=== PATIENT | male | born 2000 | race African-American/Black ===

== ENCOUNTER 2023-05-07 15:41 | Emergency (ER) | payer OTHER, SELFPAY | END 2023-05-07 16:39 | disposition home or self-care (01) | LOC: ERS 15:41 | DX: R11.2 Nausea with vomiting, unspecified (principal) | CPT/HCPCS: 99283 ==

== ENCOUNTER 2023-07-07 15:15 | Emergency (ER) | payer SELFPAY | END 2023-07-07 16:29 | disposition home or self-care (01) | LOC: ERS 15:15 | DX: R05.9 Cough, unspecified (principal) | CPT/HCPCS: 99283 ==